=== PATIENT | female | born 1940 | race Caucasian/White ===

== ENCOUNTER 2022-08-22 10:37 | Inpatient (IN) | payer OTHER ==
[2022-08-22 11:57] LABS: SARS-CoV-2 Antigen Rapid Res Negative (Negative)
--- OUTSIDE RECORDS SUMMARY | 2022-08-22 12:34 | XMS REPORT | Continuity of Care Document ---
:1940 Author Organization [facility] t Address 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 Reji n (disorder) (disorder) Active Problem 06/02/2021 [facility] [id number] Essential Problem Comm on (primary) Spirit hypertensi - [facility] on [facility] [id number] Other Problem Common chronic Spirit pain - [facility] [id number] [place] [address] left knee Spirit - [facility] [id number] Adult Problem Common general Spirit medical - [facility] exam [facility] [id number] Pain in Problem Common right knee Spirit - [facility] [id number] Bronchitis Problem Com mon Spirit - [facility] [id number] Abnormal Problem Comm on kidney Spirit function - [facility] study [facility] [id number] +5th digit Problem Co mmon eff Spirit 08/24/20*Ch - [facility], [facility] stage 3 Center (moderate) [id number] 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 [id number] BMI Problem Common 36.0-36.9, [facility] adult [facility] [id number] Primary Problem Comm on osteoarthr Spirit itis of [facility] right knee [facility] [id number] Body aches Problem Com [facility] [id number] Primary Problem Comm on osteoarthr [facility] itis of [facility] left knee [facility] [id number] Cough Problem Common [facility] [id number] Acute Problem Common allergic [facility] rhinitis [facility] [id number] Primary Problem Comm on osteoarthr [facility] itis, left - [facility] shoulder [facility] [id number] Primary Problem Comm on osteoarthr [facility], [facility] right [facility] [id number] Bilateral Problem Co [facility] 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 [facility] Allergies, Adverse Reactions, Alerts Allergy Allergy Status Severity Reaction(s) Onset Inactive Treating Comm ents Source Name Type Date Date Clinician isosorbi isosorbi Active chest Common de de pressure [facility] Social History Social Habit Start Date Stop Date Quantity Comments Source History of Tobacco Use Co mmon [facility] Sex Assigned At Com [facility] Smoking Status Start Date Stop Date Source Never Smoker [facility] Medications Ordered Filled Start Stop Current Ordering Indication Dosage Frequency Signature Comments Components Source Medication Medication Date Date Medication? Clinician (SIG) Name Name Sebastien Crowe 2019- No 40mg Common (Triamcinol (Triamcinol 1-25 S pirit one) one) 00:00: - [facility] Diclofenac Diclofenac 2019-0 2020- No Roshni 1 tablet Common Sodium Sodium 07-26 Ransom Spirit 00:00: 00:00 - CHI 00 :00 [facility] Sebastien Crowe 2020-0 No 40mg Common (Triamcinol (Triamcinol 2-24 S pirit one) one) 00:00: - [facility] Furosemide Furosemide 2019-0 No 1{table QD Furosemide 40 MG 40 MG 5-28 t} 40 MG 00:00: 00 Turmeric Turmeric No Turmeric 500 MG 500 MG 500 MG MegaRed MegaRed No MegaRed Tad-3 Tad-3 Tad-3 Krill Oil Krill Oil Krill Oil 500 MG 500 MG 500 MG Multi Multi No 1{table QD Multi Vitamin - Vitamin - t} Vitamin - Tobramycin Tobramycin No Tobramycin traMADol traMADol No traMADol HCl HCl HCl Gabapentin Gabapentin No Gabapentin Tylenol Tylenol No 2{table TID Tylenol Arthritis Arthritis ts_as_n Arthritis Pain 650 MG Pain 650 MG eeded} Pain 650 MG Accu-Chek Accu-Chek No BID Accu-Chek Teri Plus Teri Plus Teri Plus - - - Ocuvite - Ocuvite - No Ocuvite - Karolina Karolina No Karolina Carvedilol Carvedilol No BID Carvedilol 6.25 MG 6.25 MG 6.25 MG Diclofenac Diclofenac No Diclofenac Sodium Sodium Sodium Lisinopril Lisinopril No Lisinopril Immunizations Ordered Immunization Filled Immunization Date Status Commen ts Source Name Name FLUZONE HIGH DOSE FLUZONE HIGH DOSE 2020-09-11 Completed [facility] OVER 65 OVER 65 15:45:00 - [facility] FLUZONE HIGH DOSE FLUZONE HIGH DOSE 2019-11-11 Completed [facility] OVER 65 OVER 65 17:19:00 [facility] FLUZONE HIGH DOSE FLUZONE HIGH DOSE 2019-11-11 Completed [facility] OVER 65 OVER 65 00:00:00 - [facility] Procedures This patient has no known procedures. Encounters Start End Encounter Admission Attending Care Care Encounter Source Date/Time Date/Time Type Type Clinicians Facility Department ID 2022-07-[address] [facility] [id number] Common 15:00:02 Roshni [id number] [facility] 2021-12-[address] [facility] [id number] Common 12:59:19 Roshni [id number] [facility] 2021-12-[address] [facility] [id number] Common 11:08:33 Roshni [id number] [facility] 2021-12-19 Outpatient Ransom, STLMLC STLMLC [id number] Common 11:08:13 Roshni [id number] [facility] 2022-08-21 2022-08-21 (TEL) STLMLC STLMLC [id number] Co mmon 00:00:00 00:00:00 [facility] 2022-08-08 2022-08-08 ambulatory STLMLC STLMLC [id number] Common 00:00:00 00:00:00 [facility] 2021-06-29 2021-06-29 Outpatient STLMLC STLMLC [id number] Common 00:00:00 00:00:00 [facility] 2021-06-12 2021-06-12 Outpatient STLMLC STLMLC [id number] Common 00:00:00 00:00:00 [facility] 2021-05-30 2021-05-31 Outpatient nullFlavo MNA [id number] Memoria 20:00:00 04:59:59 r Neurology 01 l Thomas Costilla 2021-05-31 2021-05-31 Outpatient STLMLC STLMLC [id number] Common 00:00:00 00:00:00 [facility] 2021-05-30 2021-05-30 Outpatient KIET GreeneSCHER MHMISCHER [id number] 15:00:00 23:59:59 Byron 01 Vipul 2021-05-30 2021-05-30 Ambulatory nullFlavo MNA [id number] Memoria 20:00:00 20:00:00 Pre-Reg r Neurology 00 l Thomas Pageann 2021-05-30 2021-05-30 Outpatient MHIE MHIE [id number] Memoria 15:00:00 15:00:00 01 emilee Hancock 2021-05-30 2021-05-30 Outpatient KIET GreeneSCHANISA MHMISCHER [id number] 15:00:00 15:00:00 Byron 00 Vipul 2021-05-09 2021-05-09 Outpatient STLMLC STLMLC [id number] Common 00:00:00 00:00:00 [facility] 2021-04-30 2021-04-30 Outpatient STLMLC STLMLC [id number] Common 00:00:00 00:00:00 [facility] 2020-10-18 2020-10-18 Outpatient STLMLC STLMLC [id number] Common 00:00:00 00:00:00 [facility] 2020-09-12 2020-09-12 Outpatient STLMLC STLMLC [id number] Common 00:00:00 00:00:00 [facility] 2020-09-11 2020-09-11 Outpatient STLMLC STLMLC [id number] Common 00:00:00 00:00:00 [facility] 2020-07-26 2020-07-26 [facility] [id number] Common 17:23:00 17:23:00 t [facility] [address] [facility] 2020-07-13 2020-07-13 [facility] [id number] Common 14:00:00 14:00:00 t [facility] [address] [facility] 2020-01-17 2020-01-17 [facility] [id number] Common 16:00:00 16:00:00 t [facility] [address] [facility] 2019-12-27 2019-12-27 [facility] [id number] Common 10:08:00 10:08:00 t [facility] [address] [facility] 2019-11-11 2019-11-11 [facility] [id number] Common 14:20:00 14:20:00 t [facility] [address] [facility] 2019-09-13 2019-09-13 [facility] [id number] Common 14:20:00 14:20:00 t [facility] [address] [facility] 2019-07-13 2019-07-13 [facility] [id number] Common 14:00:00 14:00:00 t [facility] [address] [facility] 2019-06-02 2019-06-02 [facility] [id number] Common 14:20:00 14:20:00 t [facility] [address] [facility] 2019-05-18 2019-05-18 [facility] [id number] Common 11:00:00 11:00:00 t [facility] [address] [facility] 2019-03-10 2019-03-10 [facility] [id number] Common 14:11:00 14:11:00 t [facility] [address] [facility] 2018-08-13 2018-08-13 [facility] [id number] Common 08:57:00 08:57:00 t [facility] [address] [facility] 2018-08-12 2018-08-12 [facility] [id number] Common 14:15:00 14:15:00 t [facility] [address] [facility] Results This patient has no known results.
[2022-08-22] MEDS ORDERED: HYDRALAZINE HCL 20 MG/ML VIAL IV PRN (12:46)
--- NOTE | 2022-08-22 13:03 | P.HP ---
Certification for Inpatient Patient admitted to: Inpatient With expected LOS: >2 Midnights Patient will require the following post-hospital care: None Practitioner: I am a practitioner with admitting privileges, knowledge of patient current condition, hospital course, and medical plan of care. Services: Services provided to patient in accordance with Admission requirements found in Title 42 Section 412.3 of the Code of Federal Regulations Patient History Date of Service: 08/22/22 Primary Care Provider: Omayra Reason for admission: Htn urgency, tachycardia History of Present Illness: Patient is an office patient of [employer]. She has a history of htn and sleep apne. She has been having elevations last week. However they would return to normal after a period of calm. The patient was noticing they stayed elevated this week. She was at physical therapy and was sent home yesterday as her bp was elevated approx 190/109. She was asked to come into the office today. The patient was indeed htn and tachycardic. She states that last night she woke up with some dizziness and vertigo. She took an extra dose of her lisinopril 20mg, this was last night. Tried to get an ekg in the office. However the patient felt too get on the table. She also felt a little worried about going home. Considering this we decided with direct admission. The patient has not been using her cpap for the past year. Since the of her Allergies No Known Allergies Allergy (Verified 02/21/17 16:41) Home Medications: Calcium Citrate 200 mg PO DAILY 02/21/17 Amlodipine/Valsartan/Hcthiazid [Joont-Jctov-Tseh 5-160-25 mg] 1 each PO DAILY #30 tablet 02/22/17 - Past Medical/Surgical History Diabetic: Yes -: NIDDM -: HTN -: Hysterectomy -: DNC -: CATARACT SX JIMENA EYES - Family History Mother -: Heart disease, Diabetes Father -: Heart disease - Social History Alcohol use: No CD- Drugs: No Caffeine use: Yes Review of Systems Cardiovascular: Palpitations, Light Headedness Physical Examination - Vital Signs Temperature: 97.1 F Blood Pressure: 167/77 Pulse: 85 Respirations: 16 Pulse Ox (%): 97 - Physical Exam General: Alert, Moderate distress HEENT: Atraumatic, PERRLA, Mucous membr. moist/pink, EOMI, Sclerae nonicteric Neck: Supple, 2+ carotid pulse no bruit, No LAD, Without JVD or thyroid abnormality Respiratory: Clear to auscultation bilaterally, Normal air movement Cardiovascular: Normal S1 S2, Abnormal pulses, Irregular heart rate/rhythm Gastrointestinal: Normal bowel sounds, No tenderness Musculoskeletal: No tenderness Integumentary: No rashes Neurological: Normal gait, Normal speech, Normal strength at 5/5 x4 extr, Normal tone, Normal affect Lymphatics: No axilla or inguinal lymphadenopathy Assessment and Plan - Problems (Diagnosis) (1) Hypertensive urgency Current Visit: Yes Status: Acute Plan: will start the patient on hydralazine. in the morning we can start the patient on a catapress patch. (2) Tachycardia Current Visit: Yes Status: Acute Plan: start the patient on carvedilol. Consult Dr. Fang. Will get an ekg and an echocardiogram in the am. (3) Sleep apnea Current Visit: Yes Status: Acute Plan: will have her bring in her home cpap. Place it tonight with an overnight pulse oximeter. Qualifiers: Sleep apnea type: obstructive Qualified Code(s): G47.33 - Obstructive sleep apnea (adult) (pediatric) Discharge Plan: Home Plan to discharge in: Greater than 2 days - Advance Directives Does patient have a Living Will: No Does patient have a Durable POA for Healthcare: No - Code Status/Comfort Care Code Status Assessed: Yes Code Status: Full Code Physician Review: Patient Assessed, Agree with Above Assessment and Plan Critical Care: No Time Spent Managing Pts Care (In Minutes): 75
[2022-08-22] MEDS: cloNIDine HCL 0.1 MG TAB PO SCH ×2 (13:21→20:59)
[2022-08-22 13:27] LABS: Absolute Lymphocytes (CBC) 1.1 K/uL (0.7-4.9); Hematocrit 43.3 % (36.0-45.0); Lymphocytes % 10.9 % (15.3-44.8); MCV 91.2 fL (80-100); MPV 7.3 fL (7.6-11.3); RBC Red Blood Cell Count 4.75 M/uL (3.86-4.86)
[2022-08-22 13:48] LABS: Albumin 3.3 g/dL (3.4-5.0); Bilirubin Total 0.5 mg/dL (0.2-1.0); Potassium 3.8 mmol/L (3.5-5.1)
[2022-08-22 14:54] VITALS: BMI 31.9
--- NOTE | 2022-08-22 15:27 | EKG ---
Test Date: 2022-08-22 Test Time: 13:08:54 Caddy Packer: BART MEASUREMENT RESULTS: Intervals: Rate: 76 AR: 172 QRSD: 126 QT: 408 QTc: 459 [place]: P: 70 AR: 172 QRS: 46 T: 149 INTERPRETIVE STATEMENTS: Normal sinus rhythm Left bundle branch block Abnormal ECG Compared to ECG 02/22/2017 06:14:01 No significant changes Electronically Signed On 08-22-22 15:26:43 CDT by Michael Fang
[2022-08-22] MEDS: ENOXAPARIN 30 MG/0.3 ML SQ SCH (17:14)
[2022-08-22] MEDS: carvediloL 3.125 MG TAB PO SCH (17:14)
[2022-08-22] MEDS: ACETAMINOPHEN 500 MG TAB PO PRN (18:04)
[2022-08-22] MEDS ORDERED: PNEUMOCOCCAL VACCINE 0.5 ML IMVAC ONE (20:00)
[2022-08-22] MEDS ORDERED: INFLUENZA VACCINE (for 6+ mo) 0.5 ML DOSE IMVAC ONE (20:00)
--- NOTE | 2022-08-22 20:42 | CON ---
Date of Consultation: 08/22/2022 Reason For Consultation: Difficult to control blood pressure along with on and off chest pain and pa lpitations. History Of Present Illness: This is an elderly female with history of obstructive sleep apnea, hyper tension, diabetes, who presented to the hospital because of blood pressure being high, as high as 190 /110, feels dizzy with it. She also complains of having some shortness of breath and chest pain ever y now and then; however, no active chest pain at present. Feels otherwise okay and resting in her be d without complaints. Past Medical History: As outlined above in the HPI. Medications: Refer reconciliation sheet for detailed list. Allergies: NO KNOWN DRUG ALLERGIES. Family History: No premature coronary artery disease or cancer. Social History: Does not smoke or drink. Does not use any drugs. Review of Systems: All systems reviewed and they were negative except as mentioned in HPI. Physical Examination: Vital Signs: Reviewed. Head and Neck: Pupils are equal, reactive to light. Intact eye movements. No JVD. No cervical. N sunny is supple. Thyroid is not enlarged. Lungs: Clear to auscultation bilaterally. No rhonchi, wheezing, or crackles. No accessory muscle u se. Heart: Regular rate and rhythm. No extra sounds. Abdomen: Soft, nontender. Bowel sounds positive. No organomegaly. No masses or hernia. No rigidi ty or rebound Extremities: No edema, clubbing, or cyanosis. Intact pulses. Skin: No rashes. Neurologic: Alert, awake, oriented x3. No acute focal deficits appreciated. Investigations: Sodium 140, potassium 3.5, BUN is 14, creatinine 0.75. Troponin is negative and hem oglobin is 14.5. Assessment And Recommendations: 1.Hypertensive urgency. Blood pressure is not controlled. I will discontinue the clonidine and can definitely titrate up the Coreg and lisinopril to high dose. Also, adding hydrochlorothiazide as a third agent if needed. I would avoid the clonidine as it can cause significant rebound hypertension. 2.Shortness of breath and chest pain. Troponin is negative. No active chest pain. We will plan fo r outpatient stress test and echocardiogram. Thank you for the consult. /VIRGIE Voice ID: [id number] Report ID: [id number]
[2022-08-23] MEDS: carvediloL 3.125 MG TAB PO SCH ×2 (05:34→18:00)
[2022-08-23] MEDS: cloNIDine HCL 0.1 MG TAB PO SCH ×3 (09:00→21:00)
[2022-08-23] MEDS: lisinopriL 20 MG TAB PO SCH (10:00)
--- NOTE | 2022-08-23 12:35 | P.PN ---
Subjective Date of Service: 08/23/22 Primary Care Provider: Omayra Chief Complaint: Htn urgency, tachycardia Subjective: No new changes Review of Systems headache Physical Examination - Vital Signs Temperature: 96.9 F Blood Pressure: 126/59 Pulse: 54 Respirations: 18 Pulse Ox (%): 94 - Physical Exam General: Alert, In no apparent distress HEENT: Atraumatic, PERRLA, EOMI Neck: Supple, JVD not distended Respiratory: Clear to auscultation bilaterally, Normal air movement Cardiovascular: Regular rate/rhythm, Normal S1 S2 Gastrointestinal: Normal bowel sounds, No tenderness Musculoskeletal: No tenderness Integumentary: No rashes Neurological: Normal speech, Normal tone, Normal affect Lymphatics: No axilla or inguinal lymphadenopathy - Studies Laboratory Data (last 24 hrs) 08/22/22 13:12: Sodium 140, Potassium 3.8, BUN 14, Creatinine 0.75, Glucose 108 H, Total Bilirubin 0.5, AST 12 L, ALT 21, Alkaline Phosphatase 76 08/22/22 13:12: WBC 9.70, Hgb 14.5, Hct 43.3, Plt Count 287 Assessment And Plan - Current Problems (Diagnosis) (1) Hypertensive urgency Current Visit: Yes Status: Resolved Plan: will start the patient on hydralazine. in the morning we can start the patient on a catapress patch. 08/23 Has improved with cpap and regular medications. She has some dizziness (2) Tachycardia Current Visit: Yes Status: Resolved Plan: start the patient on carvedilol. Consult Dr. Fang. Will get an ekg and an echocardiogram in the am. 08/23 Some bradycardia. Will continue to monitor. Consider weaning the dosage (3) Sleep apnea Current Visit: Yes Status: Acute Plan: will have her bring in her home cpap. Place it tonight with an overnight pulse oximeter. 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
[2022-08-23] MEDS ORDERED: INFLUENZA VACCINE (for 6+ mo) 0.5 ML DOSE IMVAC ONE (17:00)
[2022-08-23] MEDS: ACETAMINOPHEN 500 MG TAB PO PRN (18:50)
[2022-08-23] MEDS: ENOXAPARIN 30 MG/0.3 ML SQ SCH (18:51)
[2022-08-24] MEDS: carvediloL 3.125 MG TAB PO SCH (06:27)
[2022-08-24 08:59] VITALS: BP 133/63; TEMP 97.2
[2022-08-24] MEDS: cloNIDine HCL 0.1 MG TAB PO SCH (09:00)
[2022-08-24 09:08] VITALS: O2SAT 97
[2022-08-24] MEDS: lisinopriL 20 MG TAB PO SCH (09:28)
--- NOTE | 2022-08-24 10:49 | P.DS ---
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 She has a history of htn and sleep apne. She has been having elevations last week. However they would return to normal after a period of calm. The patient was noticing they stayed elevated this week. She was at physical therapy and was sent home yesterday as her bp was elevated approx 190/109. She was asked to come into the office today. The patient was indeed htn and tachycardic. She states that last night she woke up with some dizziness and vertigo. She took an extra dose of her lisinopril 20mg, this was last night. Tried to get an ekg in the office. However the patient felt too get on the table. She also felt a little worried about going home. Considering this we decided with direct admission. The patient has not been using her cpap for the past year. Since the of her Hospital Course: Patient was sent to the hospital from the office. She had uncontrolled tachycardia and htn. As she was dizzy was better to observe the patient. She had negative troponins. Heart rate and blood pressure improved with carvedilol. Was seen by Dr. Fang. The patient was restarted on her home cpap. Have advised her to keep using this. However she struggles with compliance. The patient will be sent home with once a day carvedilol. Follow up in the office in one week Vital Signs/Physical Exam: Temp Pulse Resp BP Pulse Ox 97.2 F 60 18 133/63 92 08/24/22 08:00 08/24/22 09:28 08/24/22 08:00 08/24/22 09:28 08/24/22 08:00 General: Alert, In no apparent distress HEENT: Atraumatic, PERRLA, EOMI Neck: Supple, JVD not distended Respiratory: Clear to auscultation bilaterally, Normal air movement Cardiovascular: Regular rate/rhythm, Normal S1 S2 Gastrointestinal: Normal bowel sounds, No tenderness Musculoskeletal: No tenderness Integumentary: No rashes Neurological: Normal speech, Normal tone, Normal affect Lymphatics: No axilla or inguinal lymphadenopathy Laboratory Data at Discharge: WBC 9.70 K/uL (4.3-10.9) 08/22/22 13:12 Hgb 14.5 g/dL (12.0-15.0) 08/22/22 13:12 Hct 43.3 % (36.0-45.0) 08/22/22 13:12 Plt Count 287 K/uL (152-406) 08/22/22 13:12 Sodium 140 mmol/L (136-145) 08/22/22 13:12 Potassium 3.8 mmol/L (3.5-5.1) 08/22/22 13:12 BUN 14 mg/dL (7-18) 08/22/22 13:12 Creatinine 0.75 mg/dL (0.55-1.3) 08/22/22 13:12 Glucose 108 mg/dL (74-106) H 08/22/22 13:12 Total Bilirubin 0.5 mg/dL (0.2-1.0) 08/22/22 13:12 AST 12 U/L (15-37) L 08/22/22 13:12 ALT 21 U/L (12-78) 08/22/22 13:12 Alkaline Phosphatase 76 U/L (45-117) 08/22/22 13:12 Home Medications: Fexofenadine HCl [Karolina Allergy] 1 tab PO DAILY 08/22/22 Lactobacillus Acidophilus [Probiotic] 1 tab PO DAILY 08/22/22 Lisinopril [Zestril] 1 tab PO DAILY 08/22/22 Vit A,C & E/Lutein/Minerals [Ocuvite Tablet] 1 tab PO DAILY 08/22/22 carvediloL [Coreg*] 3.125 mg PO DAILY 90 Days #90 tab 08/24/22 New Medications: carvediloL [Coreg*] 3.125 mg PO DAILY 90 Days #90 tab Diet: Regular Activity: Ad elton Followup: Ezra Cutler MD [Primary Care Provider] - Time spent managing pt's care (in minutes): 30
--- NOTE | 2022-08-26 08:42 | ECHO ---
HEIGHT: 5 ft 4 in WEIGHT: 186 lb 0 oz DATE OF STUDY: 08/23/[address]: Ezra Cutler MD 2-DIMENSIONAL: YES M.MODE: YES DOPPLER: YES COLOR FLOW: YES TDS: YES PORTABLE: YES DEFINITY: NO BUBBLE STUDY: NO DIAGNOSIS: TACHYCARDIA CARDIAC HISTORY: CATHERIZATION: NO SURGERY: NO PROSTHETIC VALVE: NO PACEMAKER: NO MEASUREMENTS (cm) DIASTOLIC (NORMALS) SYSTOLIC (NORMALS) IVSd 1.1 (0.6-1.2) LA Diam 2.8 (1.9-4.0) LVEF 63% LVIDd 4.7 (3.5-5.7) LVIDs 3.1 (2.0-3.5) %FS 34% LVPWd 1.1 (0.6-1.2) Ao Diam 2.7 (2.0-3.7) 2 DIMENSIONAL ASSESSMENT: RIGHT ATRIUM: NORMAL LEFT ATRIUM: NORMAL RIGHT VENTRICLE: NORMAL LEFT VENTRICLE: NORMAL TRICUSPID VALVE: NORMAL MITRAL VALVE: NORMAL PULMONIC VALVE: NORMAL AORTIC VALVE: NORMAL PERICARDIAL EFFUSION: NONE AORTIC ROOT: NORMAL LEFT VENTRICULAR WALL MOTION: NORMAL LEFT VENTRICULAR EJECTION FRACTION. DECREASED LEFT VENTRICULAR COMPLIANCE. DOPPLER/COLOR FLOW: NORMAL COMMENTS: NORMAL LEFT VENTRICULAR EJECTION FRACTION. DECREASED LEFT VENTRICULAR COMPLIANCE. MILD TRICUSPID REGURGITATION. NORMAL RIGHT VENTRICULAR SYSTOLIC PRESSURE. TECHNOLOGIST: Josi MAYA
== END 2022-08-24 11:58 | disposition home or self-care (01) | DRG 305 ==
LOC: 4TH 12:31
PROVIDERS: ADMIT Internal Medicine; ATTEND Internal Medicine
DX: I16.0 Hypertensive urgency (principal); R00.0 Tachycardia, unspecified; G47.34 Idiopathic sleep related nonobstructive alveolar hypoventilation; E11.9 Type 2 diabetes mellitus without complications; Z23 Encounter for immunization; Z20.822 Contact with and (suspected) exposure to COVID-19; Z90.710 Acquired absence of both cervix and uterus; Z82.49 Family history of ischemic heart disease and other diseases of the circulatory system; Z83.3 Family history of diabetes mellitus
CPT/HCPCS: 36415; 80053; 84484; 85025; 87811; 90471; 90732; 93005; 93306; 94760; 97116; 97161; J1650; Q2035